=== PATIENT | female | born 1955 | race Caucasian/White ===

== ENCOUNTER 2017-01-29 08:33 | Outpatient (CLI) | payer BC ==
[~2017-01-29] VITALS: Ht 165.1 cm; Wt 59.1 kg
--- NOTE | ~2017-01-29 | HEMODYNAMI ---
PATIENT:KANDICE EMERY MEDICAL RECORD: [id number] : 53 LOCATION:D.CAT ADMISSION DATE: 01/29/17 Generatedon:01/29/201711:15 Patient name: KANDICE EMERY Patient #: [id number] : 1955 Date of study: 01/29/2017 Page: Of Hemodynamic Procedure Report Patient Data Patient Demographics Procedure consent was obtained First Name: KANDICE Gender: Female Last Name: YULY : 1955 Middle Initial: C Age: 61 year(s) Patient #: [id number] Race: SSN: [id number] Additional ID: [id number] Contact details [address]: [address] [place] [address] State: [place] City: [place] Zip code: [address] Past Medical History Allergies Allergen Reaction Date Comments Reported Other allergy 01/29/2017 Sulfa, Codeine, Levaquin, Macrobid Admission Admission Data Admission Date: 01/29/2017 Admission Time: 8:33 Arrival Date: 01/29/2017 Arrival Time: 10:30 Admit Source: Other Insurance Payor: Private health insurance Lab Results Lab Result Date: 01/29/2017 Lab Result Time: 0:00 Biochemistry Name Units Result Min Max BUN mg/dl 30 --(----)-* 7 18 Creatinine mg/dl 1 --(--*-)-- 0.6 1.3 CBC Name Units Result Min Max Hemoglobin g/dl 15.7 --(--*-)-- 13.5 17.5 Procedure Procedure Types Cath Procedure Diagnostic Procedure C [facility] w/Coronaries Miscellaneous Procedures Moderate Sedation up to 15 minutes Procedure Description Procedure Date Procedure Date: 01/29/2017 Procedure Start Time: 11:05 Procedure End Time: 11:11 Procedure Staff Name Function Dariusz Elizondo MD Performing Physician Roula Dunbar RT Scrub Cookie Russell RN Nurse Debra Ramirez RT Monitor Indication PVCs Procedure Data Cath Procedure Fluoroscopy Diagnostic fluoroscopy Total fluoroscopy Time: time: 37.19 min 37.19 min Diagnostic fluoroscopy Total fluoroscopy dose: 390 dose: 390 mGy mGy Contrast Material Contrast Material Type Amount (ml) Isovue 300 38 Entry Location Entry Primary Successful Side Size Upsize Upsize Entry Closure Pierson ccessful Closure Location (Fr) 1 (Fr) 2 (Fr) Remarks Device Remarks Radial Right 6 Fr Mechanical artery Short Compression Estimated blood loss: 5 ml Diagnostic catheters Device Type Used For End Catheter Placement Diagnostic Terumo Multi-vessel Optitorque 5Fr [place] 4.5 Angiography catheter Procedure Complications No complications Procedure Medications Medication Administration Route Dosage Oxygen NC 2 l/min Lidocaine 2% added to field 20 Heparin Flush Bag added to field 2 bags (1000units/500ml NS) 0.9% NaCl I.V. 100 ml/hr Zofran I.V. 4 mg Radial Cocktail I.A. 1 syringe (Verapomil 2mg/Nitro 400mcg/Heparin 1500units) Versed I.V. 1 mg Fentanyl I.V. 50 mcg Versed I.V. 1 mg Fentanyl I.V. 50 mcg Hemodynamics Rest HGB: 15.7 (g/dl) Heart Rate: 73 (bpm) Pressure Samples Time Site Value (mmHg) Purpose Heart Use Rate(bpm) 11:07 LV 89/60,87 Snapshot 72 Snapshots Pre Cath Intra NCS Post Cath Vital Signs Time Heart Resp SPO2 NIBP Rhythm Pain Sedation Rate (ipm) (%) (mmHg) Status Level (bpm) 10:42:56 66 16 100 137/67(87) NSR 0 (11) 10(A) , No pain 10:47:10 65 16 100 118/65(92) NSR 0 (11) 10(A) , No pain 10:51:32 60 15 100 111/52(87) NSR 0 (11) 10(A) , No pain 10:55:50 65 17 98 104/56(72) NSR 0 (11) 10(A) , No pain 11:00:06 64 15 98 113/60(80) NSR 0 (11) 10(A) , No pain 11:04:22 75 17 98 115/69(83) NSR 0 (11) 10(A) , No pain 11:08:42 71 16 95 97/54(67) NSR 0 (11) 9(A) , No pain 11:13:25 71 16 96 106/61(81) NSR 0 (11) 10(A) , No pain Medications Time Medication Route Dose Verified Delivered Reason Notes Effectiveness by by 10:43:44 Oxygen NC 2 l/min Dariusz Pritchettie used for Caro Russell RN procedure 10:43:50 Lidocaine 2% added 20ml Dariusz Buffie used for to vial Caro Russell RN procedure field 10:43:58 Heparin Flush added 2 bags Dariusz Pritchettie used for Bag to Caro Russell RN procedure (1000units/500ml field NS) 10:44:07 0.9% NaCl I.V. 100 Dariusz Gary Per ml/hr Caro Russell RN physician 10:44:14 Zofran I.V. 4 mg Dariusz Gary Per Caro Russell RN physician 11:03:16 Versed I.V. 1 mg Dariusz Gary for sedation Caro Russell RN 11:03:23 Fentanyl I.V. 50 mcg Dariusz Gary for sedation Caro Russell RN 11:07:01 Radial Cocktail I.A. 1 Dariusz Arzola for (Verapomil syringe Tauherny Elizondo MD vasodilation 2mg/Nitro 400mcg/Heparin 1500units) 11:08:07 Versed I.V. 1 mg Dariusz Gary for sedation Caro Russell RN 11:08:12 Fentanyl I.V. 50 mcg Dariusz Gary for sedation Caro Russell RN Procedure Log Time Note 10:20:09 Cookie Russell RN sent for patient. Start room use. 10:28:55 Informed consent obtained and on chart 10:29:00 Diagnostic Cath Status : Elective 10:29:18 Indication : PVCs 10:30:05 Admit Source: Other 10:30:07 Arrival Date: 01/29/2017 10:30:00 AM 10:31:00 Insurance Payor : Private health insurance 10:31:16 Time tracking: Regular hours 10:31:20 Plan of Care:Hemodynamics will remain stable., Cardiac rhythm will remain stable., Comfort level will be maintained., Respiratory function will remain adequate., Patient/ family verbilizes understanding of procedure., Procedure tolerated without complication., Recovers from procedure without complications.. 10:31:30 Patient received from Pre/Post Procedure Room to [facility] 3 Alert and oriented. Tansferred to table in Supine position. 10:31:32 Warm blankets applied, and dale hugger turned on for patient comfort. 10:31:32 Correct patient and procedure confirmed by team. 10:31:33 ECG and BP/O2 sat monitors applied to patient. 10:41:43 Vital chart was started 10:41:44 Baseline sample Acquired. 10:41:49 Rhythm: sinus rhythm 10:41:51 Full Disclosure recording started 10:43:44 Oxygen 2 l/min NC was administered by Cookie Russell RN; used for procedure; 10:43:50 Lidocaine 2% 20ml vial added to field was administered by Cookie Russell RN; used for procedure; 10:43:58 Heparin Flush Bag (1000units/500ml NS) 2 bags added to field was administered by Cookie Russell RN; used for procedure; 10:44:07 0.9% NaCl 100 ml/hr I.V. was administered by Cookie Russell RN; Per physician; 10:44:07 H&P Date Dictated: 01/14/2017 Within 30 days and on chart., H&P Addendum completed by physician on day of procedure. (MUST COMPLETE FOR ALL OUTPATIENTS). 10:44:09 Family in waiting room. 10:44:12 Patient NPO since Midnight. 10:44:14 Zofran 4 mg I.V. was administered by Cookie Russell RN; Per physician; 10:44:41 Patient allergic to Other allergySulfa, Codeine, Levaquin, Macrobid 10:44:44 Is the patient allergic to Iodine/contrast media? No. 10:44:45 Was the patient premedicated? No 10:45:12 Is patient on blood thinner?Yes 10:45:14 ACC The patient was administered the following blood thiners within the last 24 hours: ACCPlavix 10:45:17 Patient diabetic? No. 10:45:19 Previous problem with sedation/anesthesia? No ? 10:45:21 Snore? No 10:45:22 Sleep apnea? No 10:45:23 Deviated septum? No 10:45:24 Opens mouth fully? Yes 10:45:25 Sticks out tongue? Yes 10:45:30 Airway obstruction? Yes Asthma 10:45:32 Dentures? No ? 10:45:37 Pre procedure: right dorsailis pedis pulse 2+ Normal; easily identifiable; not easily obliterated 10:45:41 Pre procedure: left dorsailis pedis pulse 2+ Normal; easily identifiable; not easily obliterated 10:45:44 Patient pain scale 0/10 ?. 10:45:49 IV patent on arrival in left forearm with 0.9% NaCl at [facility]. 10:47:30 Lab Result : BUN 30 mg/dl 10:47:30 Lab Result : Hemoglobin 15.7 g/dl 10:47:30 Lab Result : Creatinine 1 mg/dl 10:47:34 Lab results completed and on chart. 10:47:39 Right Radial & Right Groin area was prepped with chlora-prep and draped in sterile fashion 10:47:40 Alarms reviewed by R. N. 10:47:41 Sharps counted by scrub and verified by R.N. 10:59:55 Physician arrived 10:59:55 --------ALL STOP TIME OUT------ 10:59:56 Final Timeout: patient, procedure, and site verified with staff and physician. All members of the team are in agreement. 11:00:01 Right Radial & Right Groin site verified by team. 11:00:05 Physical assessment completed. ASA score P 2 - A patient with mild systemic disease as per Dariusz Elizondo MD. 11:00:09 Sedation plan: IV Moderate Sedation Versed, Fentanyl 11:02:08 Zero performed for pressure channel P1 11:02:19 Use device set Radial Dx 11:02:20 Acist Syringe opened to sterile field. 11:02:20 Medline Cath Pack opened to sterile field. 11:02:21 Bag Decanter opened to sterile field. 11:02:21 Terumo 6Fr Slender Glidesheath opened to sterile field. 11:02:21 St Buddy 260cm J .035 wire opened to sterile field. 11:02:22 Acist Hand Control opened to sterile field. 11:02:22 Acist Manifold opened to sterile field. 11:02:23 Tegaderm 4 x 4 opened to sterile field. 11:02:23 MBrace Wrist Support opened to sterile field. 11:03:16 Versed 1 mg I.V. was administered by Cookie Russell RN; for sedation; 11:03:23 Fentanyl 50 mcg I.V. was administered by Cookie Russell RN; for sedation; 11:05:05 Procedure started. 11:05:10 Local anesthetic to right radial artery with Lidocaine 2% by Dariusz Elizondo MD.INITIAL ACCESS ONLY 11:05:18 A 6 Fr Short sheath was inserted into the Right Radial artery 11:06:49 A Diagnostic Terumo Optitorque 5Fr [place] 4.5 catheter was advanced over the wire and used for Multi-vessel Angiography. 11:07:01 Radial Cocktail (Verapomil 2mg/Nitro 400mcg/Heparin 1500units) 1 syringe I.A. was administered by Dariusz Elizondo MD; for vasodilation; 11::23 LV hemodynamics recorded. 11:07:25 LV gram done using HERNNADES 11:07:27 Injector settings: Ml/sec: 5, Volume: 15, 11:07:32 EF : 60 % 11:07:39 LCA angiography performed. 11:07:52 Injector settings: Ml/sec: 3, Volume: 6, 11:08:07 Versed 1 mg I.V. was administered by Cookie Russell RN; for sedation; 11:08:12 Fentanyl 50 mcg I.V. was administered by Cookie Russell RN; for sedation; 11:08:30 RCA angiography performed. 11:08:43 Injector settings: Ml/sec: 3, Volume: 6, 11:09:08 Catheter removed. 11:09:29 Terumo TR Band Standard opened to sterile field. 11:09:40 Sheath removed intact; hemostasis achieved with Mechanical Compression to the Right Radial artery. 11:09:41 Procedure ended.(Physican Out) 11:10:03 Fluoroscopy time 37.19 minutes. 11:10:09 Fluoroscopy dose: 390 mGy 11:10:09 Flurop Dose total: 390 11:10:14 Contrast amount:Isovue 300 38ml. 11:10:16 Sharps counted by scrub and verified by R.N. 11:10:18 TR band inflated with 10cc of air. 11:10:19 Insertion/operative site no bleeding no hematoma. 11:10:24 Post right radial artery:stable 11:10:26 Post Procedure Pulses reassessed and unchanged 11:10:31 Post procedure rhythm: unchanged. 11:10:33 Estimated blood loss: 5 ml 11:10:57 Post procedure instruction explained to patient.Patient verbalizes understanding. 11:10:57 Patient needs reinforcement of post procedure teaching. 11:11:07 Procedure type changed to Cath procedure, Diagnostic procedure, LHC, LHC w/Coronaries, Miscellaneous Procedures, Moderate Sedation up to 15 minutes 11:11:08 Procedure and supply charges have been captured, reviewed, submitted and are correct. 11:11:13 Procedure Complication : No complications 11:11:16 Vital chart was stopped 11:11:16 See physician's report for complete and final results. 11:11:19 Report given to Pre/Post Procedure Room. 11:11:21 Patient transfered to Pre/Post Procedure Room with Stretcher. 11:11:23 Procedure ended. 11:11:23 Full Disclosure recording stopped 11:11:31 End room use (Document Last) Device Usage Item Name Manufacture Quantity Catalog Hospital Part Current Minimal Lot# / Number Charge Number Stock Stock Serial# Code Acist Acist 1 92511 569071 939209 240048 20 Syringe Medical Systems Inc Medline Cardinal 1 [id number] 014233 53496 948175 5 Cath Pack Health Bag Microtek 1 2001S 576701 86036 779323 5 DecDada Medical Inc. Terumo 6Fr Terumo 1 [id number] 603778 026933 745374 [address] Bud[address] St Buddy 1 053131 385074 780716 996272 30 260cm J .035 wire Acist Hand Acist 1 22834 514995 760093 941332 5 Control Medical Systems Inc Acist Acist 1 03867 876866 310498 887696 5 Manifold Medical Systems Inc Tegaderm 4 3M 1 1626W 943292 285247 893397 5 x 4 MBrace Advanced 1 140-0250-00 142527 08710 737716 5 Wrist Vascular Support Dynamics Diagnostic Terumo 1 40-5807 614195 229204 493264 5 Terumo Optitorque 5Fr [place] 4.5 catheter Terumo TR Terumo 1 [id number] 555911 636872 436118 40 Band Standard Signature Audit Jeffers Stage Time Signature Unsigned Intra-Procedure 01/29/2017 Debra Ramirez 11:15:01 AM RT(R) Signatures Monitor : Debra Ramirez RT Signature : Date : Time : [address] [place] [address]
[2017-01-29] MEDS ORDERED: PLAVIX75 MG PO (09:15)
[2017-01-29] MEDS ORDERED: ALBUTEROL2.5 MG/3 M INH (09:16)
[2017-01-29] MEDS ORDERED: TRAVATAN Z2.5 ML EACH EYE (09:16)
[2017-01-29] MEDS ORDERED: PROVENTIL HFA6.7 GM INH (09:16)
[2017-01-29 09:17] LABS: BASOPHILS 0.4 % (0-2); EOSINOPHILS 11.3 % (0-7); HEMATOCRIT 47.7 % (36.0-48.0); HEMOGLOBIN 15.7 g/dL (12-16); IMMATURE GRANULOCYTES 0.4 % (0-5); LYMPHOCYTES 24.3 % (15-50); MCH 31.4 pg (26.0-34.0); MCHC 32.9 g/dL (31.0-37.0); MCV 95.4 fL (80.0-100.0); MEAN PLATELET VOLUME 11.4 fL (7.4-10.4); MONOCYTES 9.2 % (2-11); NEUTROPHILS 54.4 % (40-80); PLATELET COUNT 193 10x3/uL (130-400); RDW 12.7 % (11.5-14.5); WBC 4.8 10x3/uL (4.8-10.8)
[2017-01-29] MEDS ORDERED: FLOVENT HFA 22012 GM INH (09:17)
[2017-01-29 09:27] VITALS: BP 123/78; Ht 165.1 cm; Wt 59.1 kg
[2017-01-29 09:44] LABS: ANION GAP 10.6 mmol/L (8-16); CALCIUM 8.9 mg/dL (8.5-10.1); CARBON DIOXIDE 27.7 mmol/L (21.0-32.0); POTASSIUM - SERUM 4.3 mmol/L (3.5-5.1)
--- NOTE | 2017-01-29 11:39 | NUR ---
1125 RECEIVED PT FROM CLINICAL LABORATORY AIDE. PT IS DROWSY. DENIES ANY C/O. TR BAND TO RIGHT WRIST IS CDI, AREA IS FREE FROM BLEEDING OR HEMATOMA. RR EVEN AND UNLABORED ON O2 AT 2 LPM VIA NC. NSR, RATE 66. DENIES ANY C/O CHEST PAIN.
--- NOTE | 2017-01-29 11:47 | NUR ---
1140 PT DENIES ANY C/O. VSS, NO BLEEDING OR HEMATOMA NOTED FROM CATH SITE. AT BEDSIDE, CALL LIGHT IN REACH.
[2017-01-29] MEDS ORDERED: TOPROL XL25 MG PO (12:07)
--- NOTE | 2017-01-29 12:11 | NUR ---
1155 PT DENIES ANY C/O. TR BAND IS CDI, NO BLEEDING OR HEMATOMA NOTED. FINGERS WARM, CAP REFILL IS BRISK. RR EVEN AND UNLABORED. FAMILY AT BEDSIDE, CALL LIGHT IN REACH.
--- NOTE | 2017-01-29 12:20 | NUR ---
1210 TR BAND DEFLATION BEGUN WITH 3 CC OF AIR REMOVED AND NO BLEEDING OR HEMATOMA AT SITE.
--- NOTE | 2017-01-29 12:33 | NUR ---
1230 SANDWICH AND PO FLUIDS SERVED, PT RUBI WITH NO C/O NAUSEA.
--- NOTE | 2017-01-29 13:08 | NUR ---
1255 TR BAND REMOVED AND 2X2/ TEGADERM DRESSING PLACED. NO BLEEDING OR HEMATOMA NOTED. 1305 DC INSTRUCTIONS REVIEWED WITH PT AND WHO VERBALIZE UNDERSTANDING. DRESSING TO RIGHT WRIST IS CDI, NO BLEEDING OR HEMATOMA NOTED. PT ESCORTED TO PRIVATE AUTO VIA WC WITH DRIVING HER HOME.
--- NOTE | 2017-01-31 12:22 | OP ---
PATIENT NAME: KANDICE EMERY MEDICAL RECORD: [id number] :53 LOCATION:D.CAT ADMISSION DATE: SURGEON: HEVER PAYNE MD DATE OF OPERATION: 01/29/2017 PROCEDURES: 1. Left heart catheterization. 2. Selective coronary angiography. 3. Left ventriculogram. INDICATION: Palpitations angina. PROCEDURE IN DETAIL: After informed consent was obtained and after detailed explanation of risks, benefits as well as alternative therapies, the patient elected to proceed with angiogram and heart catheterization. The right radial area was prepped and draped in normal sterile fashion. The right radial artery was cannulated via modified Seldinger technique with placement of 6-[place] sheath. All catheters exchanged through this sheath. FINDINGS: Left ventriculogram was performed in standard 30-degree HERNANDES view, reveals good cardiac wall motion throughout all segments. Overall ejection fraction estimated at 55%. SELECTIVE CORONARY ANGIOGRAPHY: 1. Left main is with no significant angiographic disease. 2. Left anterior descending, left circumflex, right coronary are smooth-walled vessels with no angiographic evidence of coronary artery disease. OVERALL IMPRESSION: 1. No angiographic evidence of coronary artery disease. 2. Normal left heart pressures. 3. Normal left ventricular systolic function. Center medical management on treatment of palpitations. TRANSINT:[id number] Voice Confirmation ID: [id number] DOCUMENT ID: [id number] HEVER PAYNE MD at 1222 CC: [id number] DICTATION DATE: 01/29/17 1111 PROCESSING REP: 01/29/17 1744 DEP CLI 01/29/17 [place] [id number] [place] [address]
== END 2017-01-29 13:05 | disposition home or self-care (01) ==
LOC: D.CATH 08:33
PROVIDERS: Internal Medicine Interventional Cardiology
DX: I49.3 Ventricular premature depolarization (principal); R00.2 Palpitations; R06.02 Shortness of breath; R94.30 Abnormal result of cardiovascular function study, unspecified; Z01.812 Encounter for preprocedural laboratory examination

== ENCOUNTER → 2019-05-27 13:54 | Outpatient (CLI) | payer MEDICARE, BC ==
[2017-01-29 09:27] VITALS: BMI 21.6
[~2019-05-27 13:54] MED LIST: ALBUTEROL2.5 MG/3 M INH; FLOVENT HFA 22012 GM INH; PLAVIX75 MG PO; PROVENTIL HFA6.7 GM INH; TOPROL XL25 MG PO; TRAVATAN Z2.5 ML EACH EYE
== END | disposition home or self-care (01) ==
LOC: D.HCCECHO 13:54
PROVIDERS: ATTEND Internal Medicine Interventional Cardiology
DX: I42.9 Cardiomyopathy, unspecified (principal)

== ENCOUNTER → 2019-08-28 09:13 | Outpatient (CLI) | payer MEDICARE, BC ==
[2017-01-29 09:27] VITALS: BMI 21.6
--- NOTE | 2019-08-31 15:00 | EC ---
PATIENT:KANDICE EMERY DATE OF SERVICE: 08/28/19 SEX: F MEDICAL RECORD: [id number] DATE OF : 53 LOCATION:[facility] AGE OF PATIENT: 64 ADMISSION DATE: 08/28/19 REFERRING PHYSICIAN: INTERPRETING PHYSICIAN: LATOYA TOLENTINO MD ECHOCARDIOGRAM REPORT ECHO CHARGES 4 ECHO COMPLETE Date: 08/28/19 CLINICAL DIAGNOSIS: CARDIOMYOPATHY/PALPITATIONS/ HTN ECHOCARDIOGRAPHIC MEASUREMENTS (adult normal given) AC root (d.<3.7cm) 2.9 cm LV Septum d (<1.2 cm> 0.7 cm Valve Excursion 1.8 cm LV Septum (systole) 1.1 cm Left Atria (s.<4.0cm> 3.5 cm LVPW d(<1.2cm) 1.0 cm RV (d.<2.3cm) 2.1 cm LVPW (sytole) 1.6 cm LV diastole(<5.6CM) 5.1 cm MV E-F(>70mm/sec) cm LV systole 3.9 cm LVOT Diameter 1.8 cm MV exc.(>10mm) cm Est.ejection fraction (50-75%) % DOPPLER: LVIT cm/sec A 71.0 cm/sec E 89.0 cm/sec LA cm/sec RVSP 19.3 mmHg LVOT 80.0 cm/sec AOP1/2T m/s Asc. Ao 134 cm/sec RVOT 66.0 cm/sec RA cm/sec PA 71.0 cm/sec AV Gradient Peak 7.2 mmHg AV Mean 3.8 mmHg AV Area 1.5 cm MV Gradient Peak 4.3 mmHg MV Mean 1.6 mmHg MV Area cm COMMENTS: OP - HC Transfer Iron Operator: 1 ROLO SUNNY Agency Service Coordinator: 3 Dr. Garduno TAPE# PACS Pericardial Effusion Y DATE OF SERVICE: Adequate 2D, color flow imaging, spectral Doppler, and M-Mode. Borderline LVH. LV internal dimension is normal. Wall motion shows global LV hypokinesis with reduced EF, estimated EF 30% to 35%. Aortic valve is sclerosed without evidence of stenosis by Doppler interrogation. Left atrium is normal at 3.5 cm. Mitral valve shows no prolapse. Mild plus MR. Right-sided chambers are grossly normal. Trace TR. ECHOCARDIOGRAM REPORT [id number] KANDICE EMERY TRANSINT:[id number] Voice Confirmation ID: [id number] DOCUMENT ID: [id number] LATOYA TOLENTINO MD at 1500 CC: [id number] DICTATION DATE: 08/31/19 1006 NOTEMAN: 08/31/19 1321 DEP CLI 08/28/19 [place] [id number] [place] [id number]
== END | disposition home or self-care (01) ==
LOC: D.HCCECHO 09:13
PROVIDERS: ATTEND Internal Medicine Interventional Cardiology
DX: I42.9 Cardiomyopathy, unspecified (principal)

== ENCOUNTER 2020-02-01 07:19 | Day surgery (SDC) | payer MEDICARE, BC ==
[~2020-02-01] VITALS: Ht 162.6 cm; Wt 55.5 kg
[2020-02-01 07:42] LABS: HEMATOCRIT 43.1 % (36.0-48.0); HEMOGLOBIN 14.3 g/dL (12-16); MCH 31.9 pg (26.0-34.0); MCHC 33.2 g/dL (31.0-37.0); MCV 96.2 fL (80.0-100.0); MEAN PLATELET VOLUME 10.6 fL (7.4-10.4); RBC 4.48 10x6/uL (4.00-5.40); RDW 12.5 % (11.5-14.5); WBC 5.3 10x3/uL (4.8-10.8)
[2020-02-01] MEDS ORDERED: ENTRESTO 24 MG1 EACH PO (08:25)
[2020-02-01 08:29] VITALS: BP 113/65; Ht 162.6 cm; Wt 55.5 kg
--- NOTE | 2020-02-01 10:59 | NUR ---
1038 IV DC'D. CATHETER TIP INTACT. NO BLEEDING AT SITE. BANDAID APPLIED. PT VOICES UNDERSTANDING OF DISCHARGE INSTRUCTIONS THAT WERE REVIEWED WITH HER.
--- NOTE | 2020-02-02 08:32 | OP ---
PATIENT NAME: KANDICE EMERY MEDICAL RECORD: [id number] :53 LOCATION:D.[facility] ADMISSION DATE: SURGEON: ELDA LIVINGSTON DO DATE OF OPERATION: 02/01/2020 PROCEDURE: Colonoscopy with polypectomy and biopsies. INDICATION FOR PROCEDURE: Screening colonoscopy. The patient's last colonoscopy was 5 years ago. SCOPE: Olympus video pediatric colonoscope. MEDICATIONS: Propofol 400 mg IV per anesthesia. WITHDRAWAL TIME: 21 minutes. ESTIMATED BLOOD LOSS: Minimal. COMPLICATIONS: None. FINDINGS: Informed consent was given. The patient was made comfortable with the above medication. After reaching an adequate level of sedation by slow IV push, the patient was placed on her left side. A digital rectal examination was performed and revealed some small hemorrhoids. The endoscope was advanced under direct visualization through the rectum to the cecum and terminal ileum. The endoscope was slowly withdrawn and mucosa was carefully examined. The prep quality was good. There were 4 polyps removed on today's examination. Two were located in the cecum. One was benign appearing and sessile and measured approximately 4 mm in diameter. It was removed using hot snare. The second was a smaller benign-appearing sessile polyp, which measured approximately 2 mm in diameter. It was removed using hot forceps. In the ascending colon, there was a benign-appearing small sessile polyp, which measured approximately 2-3 mm in diameter. It was removed using hot forceps. In the sigmoid colon, there was a benign-appearing sessile polyp, which measured approximately 4 mm in diameter. It was removed using a hot snare. There was evidence of moderate diverticulosis involving the sigmoid colon. In the descending colon, there was an area of erythema and what appeared to be some vascular changes. Cold forceps biopsies were taken from the site to rule out any colitis. There were no obvious abnormalities or dysplastic changes. Retroflexion was performed in the rectum with visualization of grade II internal hemorrhoids without bleeding. The endoscope was then withdrawn from the patient. The patient tolerated the procedure well and there were no complications. IMPRESSION: 1. Four polyps as described above, removed using a combination of a hot snare and hot forceps. 2. Erythema and vascular changes in a focal site in the descending colon, which was biopsied with cold forceps. 3. Moderate diverticulosis of the sigmoid colon without evidence of diverticulitis. 4. Grade II internal hemorrhoids without bleeding. PLAN AND RECOMMENDATIONS: 1. Discharge home when recovery parameters are met. 2. Follow up biopsy specimen results. OPERATIVE REPORT [id number] KANDICE EMERY 3. High-fiber diet. 4. Continue current medications. 5. Recall colonoscopy in 3 years. NTS:[id number] Voice Confirmation ID: [id number] DOCUMENT ID: [id number] ELDA LIVINGSTON DO at 0832 CC: [id number] DICTATION DATE: 02/01/20 1008 BED AND BREAKFAST OPERATOR: 02/01/20 1827 [facility] 02/01/20 [place] [place] [address]
== END 2020-02-01 10:43 | disposition home or self-care (01) ==
LOC: D.OPS 07:19
PROVIDERS: Anesthesiology; ATTEND Internal Medicine Gastroenterology
DX: Z12.11 Encounter for screening for malignant neoplasm of colon (principal); K63.5 Polyp of colon; J45.909 Unspecified asthma, uncomplicated; I10 Essential (primary) hypertension; H40.9 Unspecified glaucoma; L53.9 Erythematous condition, unspecified; K57.30 Diverticulosis of large intestine without perforation or abscess without bleeding; K64.1 Second degree hemorrhoids

== ENCOUNTER → 2020-02-26 11:07 | Outpatient (CLI) | payer MEDICARE, BC ==
[2020-02-01 08:29] VITALS: BMI 21.0
[~2020-02-26 11:07] MED LIST changes: +ENTRESTO 24 MG1 EACH PO
== END | disposition home or self-care (01) ==
LOC: D.LAB 11:07
PROVIDERS: ATTEND Internal Medicine Pulmonary Disease
DX: Z11.59 Encounter for screening for other viral diseases (principal)

== ENCOUNTER → 2020-02-29 13:21 | Outpatient (CLI) | payer MEDICARE, BC ==
[2020-02-01 08:29] VITALS: BMI 21.0
== END | disposition home or self-care (01) ==
LOC: D.LAB 13:00 → D.RT 13:21
PROVIDERS: ATTEND Internal Medicine Pulmonary Disease
DX: J45.909 Unspecified asthma, uncomplicated (principal); Z11.59 Encounter for screening for other viral diseases

== ENCOUNTER → 2020-09-27 08:00 | Outpatient (CLI) | payer MEDICARE, BC ==
[2020-02-01 08:29] VITALS: BMI 21.0
--- NOTE | ~2020-09-27 | EC ---
PATIENT:KANDICE EMERY DATE OF SERVICE: 09/27/20 SEX: F MEDICAL RECORD: [id number] DATE OF : 53 LOCATION:D.[facility] AGE OF PATIENT: 65 ADMISSION DATE: 09/27/20 REFERRING PHYSICIAN: INTERPRETING PHYSICIAN: LATOYA TOLENTINO MD ECHOCARDIOGRAM REPORT ECHO CHARGES 4 ECHO COMPLETE Date: 09/27/20 CLINICAL DIAGNOSIS: CARDIOMYOPATHY/ ASSESS EF/TRICUSPID REGURG ECHOCARDIOGRAPHIC MEASUREMENTS (adult normal given) AC root (d.<3.7cm) 2.5 cm LV Septum d (<1.2 cm> 0.8 cm Valve Excursion 1.4 cm LV Septum (systole) 1.0 cm Left Atria (s.<4.0cm> 2.9 cm LVPW d(<1.2cm) 1.1 cm RV (d.<2.3cm) 3.0 cm LVPW (sytole) 1.5 cm LV diastole(<5.6CM) 5.4 cm MV E-F(>70mm/sec) cm LV systole 4.4 cm LVOT Diameter 1.9 cm MV exc.(>10mm) 1.6 cm Est.ejection fraction (50-75%) % DOPPLER: LVIT cm/sec A 67.0 cm/sec E 76.0 cm/sec LA cm/sec RVSP 23 mmHg LVOT 78 cm/sec AOP1/2T m/s Asc. Ao 130 cm/sec RVOT 76 cm/sec RA cm/sec PA 90 cm/sec AV Gradient Peak 6.77 mmHg AV Mean 3.50 mmHg AV Area 1.8 cm MV Gradient Peak 2.93 mmHg MV Mean 1.31 mmHg MV Area cm COMMENTS: Wireless Consultant: 2 EDILMA HERNADEZ Game Show Host: 3 Dr. Garduno TAPE# PACS Pericardial Effusion N DATE OF SERVICE: Adequate 2D, color-flow imaging, spectral Doppler, and M-Mode FINDINGS: No LVH. LV internal dimension is normal. Has mild hypokinesis of the anterior apex. Overall, LV function is lower limits of normal to mildly reduced 45-50%. Aortic valve is sclerosed without evidence of stenosis by Doppler interrogation. Left atrium is normal. Mitral valve shows no prolapse. Mild MR. Right side is grossly normal. Mild TR. ECHOCARDIOGRAM REPORT [id number] KANDICE EMERY TRANSINT:[id number] Voice Confirmation ID: [id number] DOCUMENT ID: [id number] LATOYA TOLENTINO MD CC: [id number] DICTATION DATE: 09/29/20834 MACHINE I ENGRAVER: 09/29/20 1137 DEP CLI 09/27/20 [place] [id number] [place] [id number]
== END | disposition home or self-care (01) ==
LOC: D.HCCECHO 08:00
PROVIDERS: ATTEND Internal Medicine Interventional Cardiology
DX: I42.9 Cardiomyopathy, unspecified (principal)